=== PATIENT | female | born 1955 | race Caucasian/White ===

== ENCOUNTER 2017-12-15 01:27 | Emergency (ER) | payer OTHER ==
[2017-12-15 02:00] VITALS: TEMP 97.6; BMI 21.9
--- NOTE | 2017-12-15 02:17 | PDOC ---
History of Present Illness - General Chief Complaint: Alcohol intoxication Stated Complaint: FALL/INTOX Time Seen by Provider: 12/15/17 02:12 History Source: Patient Exam Limitations: Intoxication - History of Present Illness Initial Comments: 12/15/17 02:36 HISTORY OF PRESENT ILLNESS: This 62-year-old woman past medical history of hypertension and cyclical vomiting syndrome who presents emergency Department status post fall today. Patient sustained a laceration to left eyebrow does not fully recall circumstances regarding fall. Patient has alcohol on breath. Patient admits to drinking 2 alcoholic beverages tonight but insists that she is not intoxicated. No recent travel or sick contacts. PAST MEDICAL HISTORY: see hpi SURGICAL HISTORY: "knee surgeries" and rotator cuff repair of right shoulder ALLERGIES: No known drug allergies REVIEW OF SYSTEMS General/Constitutional: Denies fever or chills. Denies weakness, weight change. HEENT: Denies change in vision. Denies ear pain or discharge. Denies sore throat. Cardiovascular: Denies chest pain or shortness of breath. Respiratory: Denies cough, wheezing, or hemoptysis. Gastrointestinal: Denies nausea, vomiting, diarrhea or constipation. Denies rectal bleeding. Genitourinary: Denies dysuria, frequency, or change in urination. Musculoskeletal: Denies joint or muscle swelling or pain. Denies neck or back pain. Skin and breasts: Denies rash or easy bruising. Neurologic: Denies headache, vertigo, loss of consciousness, or loss of sensation. Psychiatric: Denies depression or anxiety. Endocrine: Denies increased thirst. Denies abnormal weight change. Hematologic/Lymphatic: Denies anemia, easy bleeding, or history of blood clots. Allergic/Immunologic: Denies hives or skin allergy. Denies latex allergy. PHYSICAL EXAM General Appearance: Intoxicated. Well-appearing, appropriately dressed. No apparent distress. HEENT: EOMI, PERRLA, normal ENT inspection, normal voice, TMs normal, pharynx normal. No conjunctival pallor. No photophobia, scleral icterus. Neck: Supple. Trachea midline. No tenderness, rigidity, carotid bruit, stridor , lymphadenopathy, or thyromegaly. Respiratory/Chest: Lungs CTAB. No shortness of breath, chest tenderness, respiratory distress, accessory muscle use. No crackles, rales, rhonchi, stridor , wheezing, dullness Cardiovascular: RRR. S1, S2. No JVD, murmur, bradycardia, tachycardia. Vascular Pulses: Dorsalis-Pedis (R): 2+, Dorsalis-Pedis (L): 2+ Gastrointestinal/Abdominal: Normal bowel sounds. Abdomen soft, non-distended. No tenderness or rebound tenderness. No organomegaly, pulsatile mass, guarding, hernia, hepatomegaly, splenomegaly. Lymphatic: No adenopathy, tenderness. Musculoskeletal/Extremities: Normal inspection. FROM of all extremities, normal capillary refill. Pelvis Stable. No CVA tenderness. No tenderness to extremities, pedal edema, swelling, erythema or deformity. Integumentary: 2x ~1cm linear superficial lacerations to left eyebrow Neurologic: it operations manager II-XII intact. Fully oriented, alert. Appropriate mood/affect. Motor strength 5/5. No appreciable EOM palsy, facial droop or sensory deficit. [id number] testing WNL. Unable to perform rapid alternating movements. Past History - Past Medical History Allergies/Adverse Reactions: Allergies Allergy/AdvReac Type Severity Reaction Status Date / Time No Known Allergies Allergy Verified 12/15/17 01:58 EST Home Medications: Ambulatory Orders Unobtainable 12/15/17 - Suicide/Smoking/Psychosocial Hx Smoking History: Unknown if ever smoked Have you smoked in the past 12 months: No Information on smoking cessation initiated: No Hx Alcohol Use: Yes Drug/Substance Use Hx: No *Physical Exam - Vital Signs Last Vital Signs Temp Pulse Resp BP Pulse Ox 97.6 F 79 18 140/76 98 12/15/17 01:58 EST 12/15/17 01:58 EST 12/15/17 01:58 EST 12/15/17 01:58 EST 12/15/17 01:58 EST Procedures - Consent Consent obtained: Verbal, From Patient - Laceration/Wound Repair Left Anterior Face Wound Length: to 2.5 cm Wound Explored: clean Wound's Depth, Shape: superficial, linear Irrigated w/ Saline: Yes Betadine Prep: No Wound Debrided: minimal Wound Repaired With: Dermabond Sterile Dressing Applied: No Splint Applied: No Sling Applied: No Progress: 12/15/17 04:43 pt tolerated well. Left Anterior Frontal Wound Length: to 2.5 cm Wound Explored: clean Wound's Depth, Shape: superficial, linear Wound Debrided: minimal Wound Repaired With: Dermabond Sterile Dressing Applied: No Splint Applied: No Sling Applied: No Progress: 12/15/17 04:44 pt tolerated well. ED Treatment Course - LABORATORY CBC & Chemistry Diagram: 12/15/17 04:26 12/15/17 04:26 Medical Decision Making - Medical Decision Making 12/15/17 03:37 A/P: 62-year-old female with head trauma status post fall Patient fell to the ground DDx: syncopal episode, alcohol intoxication, hyperglycemia, ACS, ICH, metabolic abnormality Patient had stress test performed on 12/06/17 which revealed mild inferolateral ischemia and EF of 70%. Echo performed 12/11/17-left ventricle size, thickness and function are normal. Left ventricle ejection fraction is normal. The left ventricular wall motion is normal. Left ventricular filling pattern is normal for age. There is trace to mild mitral regurgitation. There is insufficient TR detected to calculate RV systolic pressure Holter monitor performed 12/11/17 1. Baseline sinus rhythm with average heart rate is 70 and range of 53-122 2. No significant bradycardia/pauses. 3. Rare PVCs and PACs. Rare atrial triplets. 4. No VT, aVF, A. fib, a flutter, SVT 5. Patient reported episode of palpitations that occurred with NSR Labs, CT of the head and C-spine, urine, laceration repair, tetanus Head CT is read by imaging associate application developer: Mild involutional changes. No hemorrhage. No mass. No obvious infarct. Possible small nonacute lacunar infarct right parietal white matter. Osseous structures are intact. CT of C-spine as read by imaging associate application developer: Degenerative changes. Negative for cervical spine fracture or malalignment.
[2017-12-15] MEDS ORDERED: DIPHTH,PERTUSS(ACELL),TET 0.5 ML DISP.SYRIN IM ONE (02:35)
[2017-12-15 05:02] LABS: URINE APPEARANCE SLCLOUDY; URINE BILIRUBIN NEGATIVE (<2.0 mg/dL); URINE COLOR STRAW; URINE GLUCOSE (UA) NEGATIVE (NEGATIVE); URINE KETONE NEGATIVE (NEGATIVE); URINE LEUK ESTERASE 1+ (NEGATIVE); URINE NITRITE NEGATIVE (NEGATIVE); URINE PROTEIN NEGATIVE (NEGATIVE); URINE UROBILINOGEN NEGATIVE mg/dL (0.2-1.0)
[2017-12-15 05:05] LABS: EOS % 1.9 % (0-4.5); HEMATOCRIT 33.8 % (32.4-45.2); HEMOGLOBIN 12.1 GM/dL (10.7-15.3); LYMPH % 41.7 % (8-40); MCH 32.6 pg (25.7-33.7); MCHC 35.7 g/dl (32.0-36.0); MEAN CELL VOLUME 91.3 fl (80-96); MEAN PLT VOLUME 8.2 fl (7.5-11.1); MONO % 8.2 % (3.8-10.2); NEUT % 47.2 % (42.8-82.8); PLATELET COUNT 203 K/MM3 (134-434); RDW 13.3 % (11.6-15.6); WHITE BLOOD COUNT 8.8 K/mm3 (4.0-10.0)
[2017-12-15 05:07] LABS: INR 1.08 (0.83-1.09); PROTHROMBIN TIME (PATIENT) 12.8 SEC (9.7-13.0)
[2017-12-15 05:08] LABS: COCAINE, UR NEGATIVE ng/ml (CUTOFF=300); METHADONE, UR NEGATIVE ng/ml (CUTOFF=300); OPIATES, URI NEGATIVE ng/ml (CUTOFF=300); PHENCYCLIDINE,URINE NEGATIVE ng/ml (CUTOFF=25); URINE AMPHETAMINES NEGATIVE ng/ml (CUTOFF=500); URINE BARBITURATES NEGATIVE ng/ml (CUTOFF=200); URINE BENZODIAZEPINES NEGATIVE ng/ml (CUTOFF=200)
[2017-12-15 05:16] LABS: EPI CELLS RARE /HPF (FEW); URINE BACTERIA RARE /hpf (NONE SEEN)
[2017-12-15 08:16] LABS: ALBUMIN 3.7 g/dl (3.4-5.0); ALK PHOS 80 U/L (45-117); ANION GAP 14 MMOL/L (8-16); BILIRUBIN,TOTAL 0.3 mg/dL (0.2-1); BLOOD UREA NITROGEN 9 mg/dL (7-18); CALCIUM 8.1 mg/dL (8.5-10.1); CHLORIDE 105 mmol/L (98-107); CO2 23 mmol/L (21-32); CREATININE 0.6 mg/dL (0.55-1.3); GLUCOSE,RANDOM 102 mg/dL (74-106); POTASSIUM 3.3 mmol/L (3.5-5.1); SGOT/AST 72 U/L (15-37); SGPT/ALT 54 U/L (13-61); SODIUM 143 mmol/L (136-145); TOT PROT 7.2 g/dl (6.4-8.2)
[2017-12-15] MEDS ORDERED: POTASSIUM CHLORIDE ORAL LIQUID 20 MEQ/15 ML PO ONE (08:27)
--- NOTE | 2017-12-15 08:34 | PDOC ---
*Physical Exam - Vital Signs Last Vital Signs Temp Pulse Resp BP Pulse Ox 97.6 F 79 18 140/76 98 12/15/17 01:58 EST 12/15/17 01:58 EST 12/15/17 01:58 EST 12/15/17 01:58 EST 12/15/17 01:58 EST - Physical Exam Comments: 12/15/17 08:38 I assumed care of this 62-year-old with history of hypertension on meds presenting with laceration to left eyebrow status post out drinking and passing on elevator overnight. Patient does not recall how the fall happened and how she got the laceration. Labs unremarkable except high alcohol level and blood. Patient seen by nail sticker and had echocardiogram and Holter monitor done a few days ago with no pathology. Patient feeling better now and reported no pain or dizziness or any other symptoms. General Appearance: Yes: Nourished, Appropriately Dressed. No: Apparent Distress HEENT: positive: EOMI, VARSHA, Normal ENT Inspection, Normal Voice, Pharynx Normal Neck: positive: Supple Respiratory/Chest: positive: Lungs Clear, Normal Breath Sounds, Respiratory Distress. negative: Chest Tender, Accessory Muscle Use Cardiovascular: positive: Regular Rhythm, Regular Rate Musculoskeletal: positive: Normal Inspection Extremity: positive: Normal Inspection Integumentary: positive: Normal Color, Warm Neurologic: positive: Fully Oriented, Alert, Normal Mood/Affect, Normal Response ED Treatment Course - LABORATORY CBC & Chemistry Diagram: 12/15/17 04:26 12/15/17 06:50 - ADDITIONAL ORDERS Additional order review: Laboratory Results 12/15/17 12/15/17 12/15/17 06:50 04:26 04:26 PT with INR INR Sodium 143 Potassium 3.3 L Chloride 105 Carbon Dioxide 23 Anion Gap 14 BUN 9 Creatinine 0.6 Creat Clearance w eGFR > 60 Random Glucose 102 Calcium 8.1 L Total Bilirubin 0.3 AST 72 H ALT 54 Alkaline Phosphatase 80 Creatine Kinase 84 Troponin I < 0.02 Total Protein 7.2 Albumin 3.7 Urine Color Straw Urine Appearance Slcloudy Urine pH 5.0 Ur Specific [place] 1.003 L Urine Protein Negative Urine Glucose (UA) Negative Urine Ketones Negative Urine Blood 1+ H Urine Nitrite Negative Urine Bilirubin Negative Urine Urobilinogen Negative Ur Leukocyte Esterase 1+ H Urine WBC (Auto) 5 Urine RBC (Auto) <1 Ur Epithelial Cells Rare Urine Bacteria Rare Opiates Screen Negative Methadone Screen Negative Barbiturate Screen Negative Phencyclidine Screen Negative Ur Amphetamines Screen Negative MDMA (Ecstasy) Screen Negative Benzodiazepines Screen Negative Cocaine Screen Negative U Marijuana (THC) Screen Negative Alcohol, Quantitative 235.6 H 12/15/17 12/15/17 04:26 04:26 PT with INR 12.80 INR 1.08 Sodium Cancelled Potassium Cancelled Chloride Cancelled Carbon Dioxide Cancelled Anion Gap Cancelled BUN Cancelled Creatinine Cancelled Creat Clearance w eGFR Cancelled Random Glucose Cancelled Calcium Cancelled Total Bilirubin AST ALT Alkaline Phosphatase Creatine Kinase Cancelled Troponin I Cancelled Total Protein Albumin Urine Color Urine Appearance Urine pH Ur Specific [place] Urine Protein Urine Glucose (UA) Urine Ketones Urine Blood Urine Nitrite Urine Bilirubin Urine Urobilinogen Ur Leukocyte Esterase Urine WBC (Auto) Urine RBC (Auto) Ur Epithelial Cells Urine Bacteria Opiates Screen Methadone Screen Barbiturate Screen Phencyclidine Screen Ur Amphetamines Screen MDMA (Ecstasy) Screen Benzodiazepines Screen Cocaine Screen U Marijuana (THC) Screen Alcohol, Quantitative Cancelled 12/15/17 04:26 RBC 3.70 MCV 91.3 MCHC 35.7 RDW 13.3 MPV 8.2 Neutrophils % 47.2 Lymphocytes % 41.7 H Monocytes % 8.2 Eosinophils % 1.9 Basophils % 1.0 - Medications Given in the ED: ED Medications Discontinued Medications Generic Name Dose Route Start Last Admin Trade Name Freq PRN Reason Stop Dose Admin Diphtheria/Tetanus/Acell Pertussis 0.5 ml 12/15/17 02:35 12/15/17 04:03 Boostrix - IM 12/15/17 02:36 0.5 ml .ONCE ONE Administration Medical Decision Making - Medical Decision Making 12/15/17 08:39 Urgent care of this 62-year-old who present with laceration of left eyebrow status post fall after drinking. Labs shows increased alcohol level and low potassium otherwise unremarkable. Patient alert and oriented with no symptoms now. Potassium repleted. Patient is stable for discharge with follow-up strict instructions *DC/Admit/Observation/Transfer Diagnosis at time of Disposition: Alcohol intoxication Qualifiers: Complication of substance-induced condition: uncomplicated Qualified Code(s): F10.920 - Alcohol use, unspecified with intoxication, uncomplicated Laceration of left eyebrow without complication Qualifiers: Encounter type: initial encounter Qualified Code(s): S01.112A - Laceration without foreign body of left eyelid and periocular area, initial encounter - Discharge Dispostion Disposition: HOME Condition at time of disposition: Stable Decision to Admit order: No - Referrals - Patient Instructions Printed Discharge Instructions: DI for Closed Head Injury, DI for Laceration Repair With Dermabond Additional Instructions: Your labs was normal. you were given potassium here due to decreased potassium level. increase fluid intake. make sure to eat and rest. come back to emergency room if severe dizziness, light headedness, severe abdominal pains with nausea and vomiting. follow-up with primary care doctor - Post Discharge Activity
[2017-12-15 09:10] VITALS: BP 111/65; PULSE 89
--- NOTE | 2017-12-15 11:37 | EKG ---
Test Reason : Blood Pressure : / mmHG Vent. Rate : 079 BPM Atrial Rate : 079 BPM P-R Int : 184 ms QRS Dur : 092 ms QT Int : 376 ms P-R-T Axes : 091 025 -51 degrees QTc Int : 431 ms NORMAL SINUS RHYTHM ABNORMAL ECG NO PREVIOUS ECGS AVAILABLE Confirmed by JEROD ADAM MD ([id number]) on 12/15/2017 11:37:21 AM Referred By: Confirmed By:JEROD ADAM MD
== END 2017-12-15 09:10 | disposition home or self-care (01) ==
LOC: JER 01:27
PROC: 0HQ1XZZ Repair Face Skin, External Approach (ICD-10-PCS; principal; 2017-12-15)
PROC: 3E0234Z Introduction of Serum, Toxoid and Vaccine into Muscle, Percutaneous Approach (ICD-10-PCS; 2017-12-15)
DX: S01.112A Laceration without foreign body of left eyelid and periocular area, initial encounter (principal); X58.XXXA Exposure to other specified factors, initial encounter; Y93.89 Activity, other specified; Y92.89 Other specified places as the place of occurrence of the external cause; Y99.9 Unspecified external cause status; F10.120 Alcohol abuse with intoxication, uncomplicated; Y90.7 Blood alcohol level of 200-239 mg/100 ml
CPT/HCPCS: 36415; 70450-TC; 72125-TC; 80053; 80307; 81003; 81015; 82550; 84484; 85025; 85610; 90715; 93005; 93010; 99283-25